=== PATIENT | female | born 2000 | race Two or more races ===

== ENCOUNTER 2023-01-19 11:40 | Emergency (ER) | payer MEDICAID, OTHER ==
[~2023-01-19] VITALS: Ht 160 cm; Wt 67.8 kg
[2023-01-19 13:56] VITALS: BP 134/77; PULSE 67; RESP 18; TEMP 98.1; O2SAT 100
== END 2023-01-19 12:41 | disposition left against medical advice (07) ==
LOC: ER 11:40
DX: R68.84 Jaw pain (principal); Z53.21 Procedure and treatment not carried out due to patient leaving prior to being seen by health care provider